=== PATIENT | female | born 1990 | race Caucasian/White ===

== ENCOUNTER 2023-10-17 22:20 | Emergency (ER) | payer MEDICAID, SELFPAY ==
[2023-10-17 22:29] VITALS: BP 152/92; PULSE 86; TEMP 36.5; O2SAT 100; BMI 22.2
--- NOTE | 2023-10-17 22:45 | ED_ITS ---
HPI - Dental/Oral General Stated complaint: MOUTH PAIN Time Seen by Provider: 10/17/23 22:39 Source: patient Mode of arrival: walk-in Limitations: no limitations History of Present Illness HPI Narrative: 32-year-old female presents to the emergency department for dental pain. Its in her left lower jaw posteriorly and this is an ongoing problem. She is seen numerous dentist to have it extracted but has not had success. She is not requesting any pain medication in terms of pills, she states she does not want any. She is requesting antibiotic and the dental anesthesia gel. The pain is moderate and continuous. Related Data Previous Rx's ?Medication ?Instructions ?Recorded clindamycin HCl 300 mg capsule 300 mg PO Q6H 10 days #40 caps 10/17/23 Review of Systems ROS Narrative A ten point review of systems is negative except as noted above. Exam Narrative Exam Narrative: Nurses note and vital signs reviewed and patient is not hypoxic. General: The patient appears well and in no apparent distress. Patient is resting comfortably on cart. Skin: Warm, dry, no pallor noted. There is no rash noted. Head: Normocephalic, atraumatic Eye: Normal conjunctiva, no drainage Ears, Nose, Mouth, and Throat: oral mucosa is moist. Nares patent. Left mandibular third molar is quite decayed, most of that tooth is missing. No bleeding or pus present. No swelling to the floor of her mouth. She is handling oral secretions well. Cardiovascular: Regular Rate and Rhythm Respiratory: Patient is in no distress, no accessory muscle use, lungs are clear to auscultation, no wheezing, rales or rhonchi Back: non-tender GI: Soft and nontender Musculoskeletal: The patient has no evidence of calf tenderness, no pitting edema, symmetrical pulses noted bilaterally Neurological: A&O, normal speech Psychiatric: Cooperative Constitutional Vital Signs, click to edit/add: Last Vital Signs Temp 97.7 F 10/17/23 22:29 Pulse 86 10/17/23 22:29 Resp 18 10/17/23 22:29 BP 152/92 H 10/17/23 22:29 Pulse Ox 100 10/17/23 22:29 O2 Del Method Room Air 10/17/23 22:29 Course Vital Signs Vital signs: Vital Signs Temperature 97.7 F 10/17/23 22:29 Pulse Rate 86 10/17/23 22:29 Respiratory Rate 18 10/17/23 22:29 Blood Pressure 152/92 H 10/17/23 22:29 Pulse Oximetry 100 10/17/23 22:29 Oxygen Delivery Method Room Air 10/17/23 22:29 Temperature 97.7 F 10/17/23 22:29 Pulse Rate 86 10/17/23 22:29 Respiratory Rate 18 10/17/23 22:29 Blood Pressure 152/92 H 10/17/23 22:29 Pulse Oximetry 100 10/17/23 22:29 Oxygen Delivery Method Room Air 10/17/23 22:29 MDM - Dental/Oral MDM Narrative Medical decision making narrative: She is prescribed clindamycin and dispensed topical anesthesia. Treatment diagnosis and follow-up were discussed with the patient. Differential Diagnosis Differential diagnosis: Likely gingival abscess, dental caries, toothache, dental abscess and fracture of tooth Discharge Plan Discharge Stand Alone Forms: Portal Instructions Clinical Impression: Dental caries Patient Disposition: Home, Self-Care Time of Disposition Decision: 22:42 Condition: Good Mode of Transportation: Private Vehicle Prescriptions / Home Meds: New clindamycin HCl 300 mg capsule 300 mg PO Q6H 10 Days Qty: 40 0RF Print Language: Romanian Instructions: Toothache (ED) Referrals: ISAÍAS DOYLE [Primary Care Provider] - 1 week
[2023-10-17] MEDS: BENZOCAINE 30 ML, lidocaine HCL 15 ML MM (23:06)
== END 2023-10-17 23:05 | disposition home or self-care (01) ==
PROVIDERS: Emergency Provider Emergency Medicine; PCP Nurse Practitioner
DX: K02.9 Dental caries, unspecified (principal)
CPT/HCPCS: 99284